=== PATIENT | female | born 1990 | race Caucasian/White ===

== ENCOUNTER 2022-06-07 13:10 | Outpatient (CLI) | payer OTHER, SELFPAY | END 2022-06-07 13:11 | disposition home or self-care (01) | PROVIDERS: PCP Physician Assistant Medical; Visit Provider Physician Assistant Medical | DX: Z00.00 Encounter for general adult medical examination without abnormal findings (principal); Z13.6 Encounter for screening for cardiovascular disorders; Z13.1 Encounter for screening for diabetes mellitus | CPT/HCPCS: 80061 ==

== ENCOUNTER 2023-07-26 08:26 | Outpatient (CLI) | payer OTHER, SELFPAY | END 2023-07-26 08:27 | disposition home or self-care (01) | PROVIDERS: PCP Physician Assistant Medical; Visit Provider Family Medicine | DX: R00.2 Palpitations (principal); Z13.29 Encounter for screening for other suspected endocrine disorder | CPT/HCPCS: 80048; 84443 ==

== ENCOUNTER 2023-10-04 13:50 | Outpatient (CLI) | payer OTHER, SELFPAY ==
[2023-10-04 15:17] VITALS: BP 124/84; PULSE 95
--- NOTE | 2023-10-04 15:23 | W.PM.STED ---
Stress Test Note Date Date Seen: 10/04/23 Date of test: 10/04/23 Providers Referring provider: Jasiel Branham Primary care provider: Karen Jara Stress test physician: Cassy Niño Stress Test Note Stress test ordered: Stress Echo Indication for test: Chest tightness Stress test medicine: None Results discussion: Resting EKG: Sinus rhythm, 70 beats per minute. No evidence of any ischemia or infarct. Resting blood pressure: 136/85 Stress test: Patient was consented on stress test ordered. Patient was exercise following standard Derik protocol. Patient exercised to 13 10 minutes achieving 13.5 Mets. She had a maximum heart rate of 175 beats per minute which was 111% of a calculated target of 157. She had a maximal blood pressure of 170/88, in 4th phase, blood pressure was 160/80 for which gave her rate pressure product of 23,040. Patient stopped due to reaching exercise capacity. She had no symptoms during the stress test. Patient had no evidence of any diagnostic EKG changes for ischemia. , she had no symptoms. Echo images are pending to couple this test for full formal diagnostic. Impression: Subjectively negative, objectively negative EKG portion of this stress test. Follow up suggested: Patient was discharged in stable condition, will await a phone call from clinic regarding stress test results.
== END 2023-10-04 13:51 | disposition home or self-care (01) ==
LOC: STRESS 13:50
PROVIDERS: PCP Physician Assistant Medical; Visit Provider Family Medicine
DX: R07.89 Other chest pain (principal)
CPT/HCPCS: 93016; 93325; 93351